=== PATIENT | male | born 1960 | race Caucasian/White ===

== ENCOUNTER 2021-10-30 17:47 | Inpatient (IN) | payer OTHER ==
[~2021-10-30] VITALS: Ht 170.2 cm; Wt 74.6 kg
[2021-10-30] MEDS ORDERED: FINA5 PO (18:06)
[2021-10-30] MEDS ORDERED: FOLI1 PO (18:06)
[2021-10-30] MEDS ORDERED: OMEP20ER PO (18:07)
[2021-10-30] MEDS ORDERED: Prinivil10 MG PO (18:07)
[2021-10-30 18:23] LABS: BASOPHILS ABSOLUTE AUTO 0.04 K/mm3 (0.00-0.23); BASOPHILS PERCENT AUTO 0 % (0-2); EOSINOPHILS ABSOLUTE AUTO 0.07 K/mm3 (0.00-0.68); EOSINOPHILS PERCENT AUTO 1 % (0-6); Hematocrit 42.2 % (37.0-53.0); Hemoglobin 14.4 g/dL (13.5-17.5); IMMATURE GRAN ABSOLUTE AUTO 0.02 K/mm3 (0.00-0.10); IMMATURE GRAN PERCENT AUTO 0 % (0-1); LYMPHOCYTES ABSOLUTE AUTO 2.21 K/mm3 (0.84-5.20); LYMPHOCYTES PERCENT AUTO 23 % (21-46); MONOCYTES ABSOLUTE AUTO 0.63 K/mm3 (0.16-1.47); MONOCYTES PERCENT AUTO 7 % (4-13); Mean Corpuscular HGB 30.2 pg (26.0-34.0); Mean Corpuscular HGB Conc 34.1 g/dL (31.5-36.5); Mean Corpuscular Volume 89 fL (80-100); Mean Platelet Volume 10.6 fL (9.1-12.4); NEUTROPHILS ABSOLUTE AUTO 6.62 K/mm3 (1.96-9.15); NEUTROPHILS PERCENT AUTO 69 % (41-73); Platelet Count 280 K/mm3 (150-400); RDW Coefficient Variation 12.6 % (11.7-14.2); RDW Standard Deviation 41.1 fL (35.1-46.3); Red Blood Cell Count 4.77 M/mm3 (4.30-5.90); White Blood Cell Count 9.59 K/mm3 (4.00-11.30)
[2021-10-30 18:40] LABS: Bun/Creatinine Ratio 14.6 (12.0-20.0); Calcium, Blood 8.9 mg/dL (8.5-10.1); Creatinine, Blood 0.68 mg/dL (0.60-1.20)
[2021-10-30 23:41] LABS: Influenza A, PCR NEGATIVE (NEGATIVE); Influenza B, PCR NEGATIVE (NEGATIVE); Resp Syncytial Virus, PCR NEGATIVE (NEGATIVE); SARS-Cov-2 (COVID-19) PCR, MMC NEGATIVE (NEGATIVE)
[2021-10-31 01:28] LABS: Source, Urine Foley catheter
[2021-10-31 01:31] LABS: Bilirubin, Urine Neg (Neg); Blood, Urine Neg (Neg); Glucose Qualitative, Urine Neg (Neg); Ketones, Urine Neg (Neg); Leukocyte Esterase, Urine 1+ (Neg); Nitrite, Urine Neg (Neg); Protein, Urine Neg (Neg); Specific Gravity, Urine 1.005 (1.003-1.022); Urobilinogen, Urine NORM (Normal)
[2021-10-31 01:37] LABS: Appearance, Urine Clear (Clear); Bacteria Not Seen /hpf; Color, Urine Pale Yellow (P-Yellow); Red Blood Cells, Urine Not Seen /hpf (0-2); Squamous Epithelial Cells Not Seen /hpf (Few); White Blood Cells, Urine 0-2 /hpf (0-5)
[2021-10-31 02:14] LABS: BASOPHILS ABSOLUTE AUTO 0.04 K/mm3 (0.00-0.23); BASOPHILS PERCENT AUTO 0 % (0-2); EOSINOPHILS ABSOLUTE AUTO 0.01 K/mm3 (0.00-0.68); EOSINOPHILS PERCENT AUTO 0 % (0-6); Hematocrit 40.1 % (37.0-53.0); Hemoglobin 13.5 g/dL (13.5-17.5); IMMATURE GRAN ABSOLUTE AUTO 0.04 K/mm3 (0.00-0.10); IMMATURE GRAN PERCENT AUTO 0 % (0-1); LYMPHOCYTES ABSOLUTE AUTO 1.89 K/mm3 (0.84-5.20); LYMPHOCYTES PERCENT AUTO 17 % (21-46); MONOCYTES ABSOLUTE AUTO 0.76 K/mm3 (0.16-1.47); MONOCYTES PERCENT AUTO 7 % (4-13); Mean Corpuscular HGB 30.3 pg (26.0-34.0); Mean Corpuscular HGB Conc 33.7 g/dL (31.5-36.5); Mean Corpuscular Volume 90 fL (80-100); Mean Platelet Volume 10.7 fL (9.1-12.4); NEUTROPHILS ABSOLUTE AUTO 8.71 K/mm3 (1.96-9.15); NEUTROPHILS PERCENT AUTO 76 % (41-73); Platelet Count 267 K/mm3 (150-400); RDW Coefficient Variation 12.7 % (11.7-14.2); RDW Standard Deviation 41.5 fL (35.1-46.3); Red Blood Cell Count 4.45 M/mm3 (4.30-5.90); White Blood Cell Count 11.45 K/mm3 (4.00-11.30)
[2021-10-31 02:34] LABS: Albumin, Blood 3.1 g/dL (3.4-5.0); Albumin/Globulin Ratio 0.9 (0.8-1.8); Bilirubin, Total 1.6 mg/dL (0.1-1.0); Calcium, Blood 8.6 mg/dL (8.5-10.1); Creatinine, Blood 0.75 mg/dL (0.60-1.20); Globulin, Blood 3.5 g/dL (2.2-4.0); Potassium, Blood 3.1 mmol/L (3.5-5.5); Total Protein, Blood 6.6 g/dL (6.4-8.2)
--- NOTE | 2021-10-31 02:51 | NUR ---
ASSUMPTION OF CARE PT ARRIVED TO ICU FROM ER VIA GURNEY. MOVED TO ICU BED VIA SLIDER SHEET. PT USES WHEELCHAIR/ CANE AT BASELINE HE IS A PARAPALEGIC. PT DOES HAVE GROSS MOVEMENT IN LE BUT UNABLE TO WALK. PT ALERT AND ORIENTED, QUITE PLEASANT AND COOPERATIVE WITH CARE. DENIES CP OR SOB AT THIS TIME. ON 2LPM O2 VIA NC c SATS >90%. PT SELF CATHS AT HOME DUE TO BASELINE URINARY RETENTION. PT WAS MEDICATED WITH LASIX PRIOR TO ARRIVAL TO ICU, TEMP PROBE PRADO CATH ESTABLISHED. HTN IMPROVING AFTER LOPRESSOR GIVEN IN ER. PT ABLE TO TURN SELF IN BED, JUST NEEDS HELP TUCKING PILLOWS.
--- NOTE | 2021-10-31 06:50 | NUR ---
SHIFT ASSESSMENT NO ACUTE CHANGES SINCE PRIOR NOTE. PT REMAINS ALERT AND ORIENTED. TURNING SELF IN BED. DENIES CP OR SOB. PT STATES HE FEELS MUCH BETTER THAN HE DID DURING ADMIT. PT ABLE TO SLEEP FOR 3-4 HOURS. REPORT TO ONCOMING NURSE.
--- NOTE | 2021-10-31 08:56 | NUR ---
AM NOTE... ASSUMED CARE OF PT AT 0700, THE PT IS A&Ox4 THE PT WAS ON 4L NC WITH O2 SATS >95% L/S CLEAR T/O DIM IN THE BASES THIS WAS TITRATED DOWN TO 2L NC WITH O2 SATS STILL >95%. THE PT IS IN SINUS TACH IN THE LOW 100'S, NO EDEMA IS NOTED ON ASSESSMENT. THE PT DENIES ANY CHEST PAIN/PRESSURE N/V OR INCREASED SOB, THE PT DOES APPEAR TO BECOME DYSPNEIC WITH MOVING HIMSELF IN THE BED BUT RECOVERS QUICKLY, HIS O2 SATS DID NOT DROP WITH THIS. THE PT'S PRADO IS PATENT AND DRAINING TO GRAVITY. WILL CONTINUE TO MONITOR.
--- NOTE | 2021-10-31 09:58 | NUR ---
PT UPDATE... REPORT GIVEN TO [facility] MEDICAL FLOOR RN. ALL OF PT'S BELONGINGS PACKED AND SENT WITH THE PT. THE PT'S VS STABLE AT THE TIME OF TRANSFER.
--- NOTE | 2021-10-31 10:59 | NUR ---
MR RIOS TRANSFERED TO MEDICAL FLOOR AROUND 1020 THIS AM. A&OX4. HE SAID HIS BREATHING FEELS A LOT BETTER TODAY, ON 2L NC AT THIS TIME. DENIES ANY PAIN OR DISCOMFORT. PRADO CATHETER IN PLACE. SKIN INTACT. BED LOW, CALL LIGHT IN REACH
--- NOTE | 2021-10-31 16:51 | NUR ---
SHIFT SUMMARY. MR RIOS IS A&OX4. NO SOB AT REST AND EXERTION. OXYGEN WEANED TO 1L N/C WITH O2 SATS IN THE HIGH 90S. PT DENIES PAIN. UP TO BATHROOM, +BM TODAY, ABLE TO STAND AND PIVOT WITH 1 PERSON ASSIST. HE HAS HIS OWN CANES AND WHEELCHAIR WITH HIM AND HAD STRONG UPPER BODY STRENGTH. PRADO CATHETER IN PLACE. ON TELEMETRY SR/ST. BED LOW, CALL LIGHT IN REACH.
--- NOTE | 2021-11-01 00:15 | NUR ---
PT REQUESTED INDWELLING PRADO REMOVED. DR.ABRIO BRAMBILA AND NEW ORDERS RECIEVED TO STRAIGHT CATH PRN PER PT'S HOME ROUTINE FOR NEUROGENIC BLADDER. EVE LEYVA'Patrick AND HE IS AWARE TO CALL IF ST.CATH FEELS NEEDED.
[2021-11-01 04:39] LABS: Hematocrit 38.3 % (37.0-53.0); Hemoglobin 12.7 g/dL (13.5-17.5); Mean Corpuscular HGB 30.3 pg (26.0-34.0); Mean Corpuscular HGB Conc 33.2 g/dL (31.5-36.5); Mean Corpuscular Volume 91 fL (80-100); Mean Platelet Volume 10.9 fL (9.1-12.4); Platelet Count 265 K/mm3 (150-400); RDW Coefficient Variation 12.7 % (11.7-14.2); RDW Standard Deviation 42.4 fL (35.1-46.3); Red Blood Cell Count 4.19 M/mm3 (4.30-5.90); White Blood Cell Count 9.32 K/mm3 (4.00-11.30)
--- NOTE | 2021-11-01 04:44 | NUR ---
SUMMARY: PT A/OX4, CALLS APPROPRIATELY TO SPECIFY NEEDS AND IS PLEASANT AND COOPERATIVE W/CARE. HE'S PARAPLEGIC AND W/C BOUND AT BASELINE BUT IS ABLE TO STAND PIVOT T/F W/CANE, SBA PROVIDED FOR SAFETY AND PT AWARE OF LIMITATIONS. PRADO DC'D THIS SHIFT PER REQUEST AND PT TO RESUME ST.CATH PRN FOR NEUROGENIC BLADDER PER HOME SCHEDULE. HE REMAINS ON 1L O2 W/SPO2 WNL AND NO S/S SOB OBSERVED THIS SHIFT. PT CONT'S STACH W/PVC'S AT 100'S BPM. VSS/AFEBRILE, NO ACUTE CHANGES. PT NPO EXCEPT WATER FOR CORONARY RISK PANEL, RESULTS PENDIND. WCTM AND REPORT TO DAY RN.
[2021-11-01 05:14] LABS: Alanine Aminotransfer (ALT/SGP 19 U/L (12-78); Albumin, Blood 2.8 g/dL (3.4-5.0); Albumin/Globulin Ratio 0.9 (0.8-1.8); Alk Phos 64 U/L (50-136); Anion Gap 4 mmol/L (6-16); Aspartate Aminotrans (AST/SGOT 18 U/L (12-37); Bilirubin, Total 0.8 mg/dL (0.1-1.0); Blood Urea Nitrogen 13 mg/dL (8-24); Bun/Creatinine Ratio 14.7 (12.0-20.0); CHOL/HDL RATIO 3.5; CO2, Blood 30 mmol/L (21-32); Calcium, Blood 8.7 mg/dL (8.5-10.1); Chloride, Blood 106 mmol/L (98-108); Cholesterol 152 mg/dL (50-200); Creatinine, Blood 0.89 mg/dL (0.60-1.20); Globulin, Blood 3.1 g/dL (2.2-4.0); Glomerular Filtration Rate 96 (60-); Glucose, Blood 100 mg/dL (70-99); HDL Cholesterol 44 mg/dL (>39); LDL/HDL RATIO 1.9; Low Density Lipoprotein Chol 85 mg/dL (0-110); Magnesium, Blood 2.3 mg/dL (1.6-2.4); Potassium, Blood 3.9 mmol/L (3.5-5.5); Sodium, Blood 140 mmol/L (136-145); Total Protein, Blood 5.9 g/dL (6.4-8.2); Triglycerides 116 mg/dL (30-160); Very Low Density Lipoprot Chol 23 mg/dL (6-32)
--- NOTE | 2021-11-01 17:59 | NUR ---
SHIFT SUMMARY PT AxOx4. PLEASANT AND COOPERATIVE WITH CARE. PT PARAPLEGIC WITH ABILITY TO TRANSFER WITH CANE AND WC ASSISTANCE. PT SELF CATH'S AT HOME PRN D/T NEUROGENIC BLADDER. PER PATIENT REQUEST, RN ASSISTED WITH STRAIGHT CATH x4 THIS SHIFT. NEW 20G IV PLACED IN RFA. PT DENIES DYSPNEA OR PAIN THIS SHIFT. PT REPORTED ABDOMINAL PRESSURE/DISCOMFORT x1. PT STATED THIS RESOLVED AFTER BM AND VOID VIA STRAIGHT CATH. PT DECLINED LACTULOSE AND STOOL SOFTNERS THIS SHIFT. PT BP WAS HYPOTENSIVE AT AFTERNOON VITALS. COREG HELD. PT CURRENTLY RESTING IN BED EATING DINNER. PT DENIES ANY NEEDS AT THIS TIME. CALL LIGHT IN REACH.
--- NOTE | 2021-11-02 04:45 | NUR ---
SUMMARY: PT A/OX4, CALLS APPROPRIATELY TO SPECIFY NEEDS AND IS PLEASANT AND COOPERATIVE W/CARE. HE'S PARAPLEGIC BUT HAS ABILITY TO WT.BEAR AND T/F W/SBA AND CANE TO W/C. PT SELF CATHS AT HOME FOR NEUROGENIC BLADDER AND REQUIRED RN ASSIST TO ST.CATH X2 THIS SHIFT. HE BECOMES SLIGHTLY SOB W/EXERTION AND REMAINS ON 1L O2 VIA NC FOR SPO2 WNL. PT IS NSR ON TELEMETRY W/HR 90'S BPM. HE REFUSED COLACE D/T HAVING "BM'S W/O ISSUE" AND DENIED ALL COMPLAINTS OTHER THAN ABDO DISCOMFORT WHEN FEELING NEED TO VOID. NO ACUTE CHANGES, VSS AND AFEBRILE. WCTM AND REPORT TO DAY RN.
[2021-11-02 05:17] LABS: Hematocrit 40.7 % (37.0-53.0); Hemoglobin 13.2 g/dL (13.5-17.5); Mean Corpuscular HGB 29.9 pg (26.0-34.0); Mean Corpuscular HGB Conc 32.4 g/dL (31.5-36.5); Mean Corpuscular Volume 92 fL (80-100); Mean Platelet Volume 11.4 fL (9.1-12.4); Platelet Count 281 K/mm3 (150-400); RDW Coefficient Variation 12.7 % (11.7-14.2); RDW Standard Deviation 43.3 fL (35.1-46.3); Red Blood Cell Count 4.41 M/mm3 (4.30-5.90); White Blood Cell Count 10.96 K/mm3 (4.00-11.30)
[2021-11-02 05:51] LABS: Albumin/Globulin Ratio 0.8 (0.8-1.8); Bilirubin, Total 0.9 mg/dL (0.1-1.0); Bun/Creatinine Ratio 17.3 (12.0-20.0); Calcium, Blood 9.1 mg/dL (8.5-10.1); Creatinine, Blood 0.87 mg/dL (0.60-1.20); Globulin, Blood 3.6 g/dL (2.2-4.0); Total Protein, Blood 6.6 g/dL (6.4-8.2)
[2021-11-02] MEDS ORDERED: ASPI81CH PO (14:00)
[2021-11-02] MEDS ORDERED: Carvedilol12.5 MG PO (14:02)
[2021-11-02] MEDS ORDERED: FURO40 (14:02)
[2021-11-02] MEDS ORDERED: SPIR25 PO (14:03)
--- NOTE | 2021-11-02 15:37 | NUR ---
REVEIWED ALL NOTES AND ASSESSMENTS BY LUCINA ESTEBAN AND MONSE.
== END 2021-11-02 15:51 | DRG 189 ==
LOC: ER 17:47 → MEDS 10-31 00:27 → ICUW 10-31 00:27 → ICUE 10-31 00:39 → MEDS 10-31 10:23
PROVIDERS: Emergency Medicine; Internal Medicine; Student in an Organized Health Care Education/Training Program; ADMIT Internal Medicine
DX: J96.00 Acute respiratory failure, unspecified whether with hypoxia or hypercapnia (principal); J91.8 Pleural effusion in other conditions classified elsewhere; G82.22 Paraplegia, incomplete; I11.0 Hypertensive heart disease with heart failure; Z20.822 Contact with and (suspected) exposure to COVID-19; M19.90 Unspecified osteoarthritis, unspecified site; I25.10 Atherosclerotic heart disease of native coronary artery without angina pectoris; E78.5 Hyperlipidemia, unspecified; I50.9 Heart failure, unspecified; E87.6 Hypokalemia; R07.89 Other chest pain; N31.9 Neuromuscular dysfunction of bladder, unspecified; I25.2 Old myocardial infarction; Z87.891 Personal history of nicotine dependence; Z98.890 Other specified postprocedural states; Z88.1 Allergy status to other antibiotic agents; Z88.8 Allergy status to other drugs, medicaments and biological substances; Z79.899 Other long term (current) drug therapy
CPT/HCPCS: 0241U; 36415; 51701; 51702; 71045; 71260; 74177; 80048; 80053; 80061; 81001; 83605; 83735; 83880; 84132; 84484; 85025; 85027; 87070; 87077; 87086; 87186; 87205; 93005; 93010; 93306; 96374; 96375; 99285-25; A9270; J0696; J1650; J1940; J2270; J7030; Q9967

== ENCOUNTER 2021-12-08 07:44 | Day surgery (SDC) | payer OTHER ==
[~2021-12-08] VITALS: Ht 170.2 cm; Wt 60.2 kg
[~2021-12-08 07:44] MED LIST: ASPI81CH PO; Carvedilol12.5 MG PO; FINA5 PO; FOLI1 PO; FURO40; OMEP20ER PO; Prinivil10 MG PO; SPIR25 PO
--- NOTE | 2021-12-08 08:32 | NUR ---
12/08/21 0832 CAROLYN GIRON @ [phone], NORA @ [phone]
== END 2021-12-08 10:00 | disposition home or self-care (01) ==
LOC: ORSCSDS 07:44
PROVIDERS: Ophthalmology
PROC: 08RJ3JZ Replacement of Right Lens with Synthetic Substitute, Percutaneous Approach (ICD-10-PCS; principal; 2021-12-08 09:00)
DX: H25.13 Age-related nuclear cataract, bilateral (principal); I50.9 Heart failure, unspecified; I10 Essential (primary) hypertension; I25.2 Old myocardial infarction; I25.10 Atherosclerotic heart disease of native coronary artery without angina pectoris; Z79.82 Long term (current) use of aspirin; Z79.899 Other long term (current) drug therapy
CPT/HCPCS: J2001; J2250; J3010; J3301; J7040; V2632

== ENCOUNTER 2022-06-17 08:54 | Day surgery (SDC) | payer OTHER ==
[~2022-06-17] VITALS: Ht 172.7 cm; Wt 78.0 kg
[~2022-06-17 08:54] MED LIST changes: -FURO40; +FURO40 PO; +LOSA50 PO; +MOXIOPS UD; +XARELTO20 MG PO
--- NOTE | 2022-06-17 12:31 | NUR ---
PT SITTING BED EATING LUNCH. RIGHT RADIAL TR BAND SITE SOFT NON-TENDER WITH NO HEMATOMA, NO PULSITILE BLEEDING AND WRIST BOARD IN PLACE. PT DENIES CHEST PAIN. CALL LIGHT IN REACH.
--- NOTE | 2022-06-17 13:05 | NUR ---
FULL REPORT PROVIDED Irena VARELA TO ASSUME CARE OF PT IN RECOVERY ROOM.
--- NOTE | 2022-06-17 14:19 | NUR ---
10CC AIR REMOVED FROM R WRIST TR BAND. -BLEEDING OR SWELLING. R WRIST TR BAND REMOVED. PUNCTURE AREA CLEANED /C NS. R WRIST SPLINT REAPPLIED. PT VERBALIZED UNDERSTANDING OF WRITTEN AND VERBAL D/C INST. PT TAKEN OUT OF THE HRT CENTER VIA W/C.
== END 2022-06-17 14:46 | disposition home or self-care (01) ==
LOC: MHTC 08:54
DX: I25.5 Ischemic cardiomyopathy (principal); I11.0 Hypertensive heart disease with heart failure; I50.9 Heart failure, unspecified; I21.9 Acute myocardial infarction, unspecified; I48.0 Paroxysmal atrial fibrillation; I25.10 Atherosclerotic heart disease of native coronary artery without angina pectoris
CPT/HCPCS: 76937; 93458; 99152; 99153; C1769; C1887; C1894; J1644; J2250; J3010; J7030; J7050; Q9967

== ENCOUNTER 2024-06-07 09:28 | Day surgery (SDC) | payer OTHER ==
[~2024-06-07] VITALS: Ht 175.3 cm; Wt 75.0 kg
[~2024-06-07 09:28] MED LIST changes: +ARTIFICIAL TEARS BOTHEYES; +Balanced Salt Epinephrine Irrigation Solution 500 mL IR SCH; +ELIQUIS5 M2 PO; +Lidocaine HCl/Pf 1% 5 ML VIAL XX SCH; +MULTI-VITAMIN1 EAC2 PO; +Moxifloxacin HCL 0.5 MG/0.1 ML 0.4MLSYR LEFTEYE SCH; +NITROGLYCERIN; +PHENYLEPHRINE\\TROPICAMIDE\\TETRACAINE OPHTHALMIC DILATING SOLN LEFTEYE PRN; +Povidone-Iodine 450 DROP/30 ML Solution LEFTEYE SCH; +Povidone-Iodine 450 DROP/30 ML Solution ONE; +Tetracaine HCl/Pf 0.5% Opth Soln 4 ml ONE; +Triamcinolone Inj Susp 40 MG / ML 1ML Vial INJ SCH; +Triamcinolone Inj Susp 40 MG / ML 1ML Vial ONE; +VITAMIN D5000 UNIT PO
[2024-06-07] MEDS ORDERED: Diazepam 2 MG Tab ONE ×2 (09:46→10:30)
[2024-06-07] MEDS ORDERED: Diazepam 5 MG Tab ONE (09:46)
[2024-06-07] MEDS ORDERED: FentaNYL Citrate 50 MCG/ML 2 ML Injection ONE (10:58)
[2024-06-07] MEDS ORDERED: Midazolam HCl 1MG / ML 2ML Vial ONE (10:58)
[2024-06-07 11:40] VITALS: BP 117/79
== END 2024-06-07 11:58 | disposition home or self-care (01) ==
LOC: ORSCSDS 09:28
PROVIDERS: Ophthalmology
PROC: 08RK3JZ Replacement of Left Lens with Synthetic Substitute, Percutaneous Approach (ICD-10-PCS; principal; 2024-06-07 11:00)
DX: H25.812 Combined forms of age-related cataract, left eye (principal); Z96.1 Presence of intraocular lens; I10 Essential (primary) hypertension; I50.9 Heart failure, unspecified; I25.2 Old myocardial infarction; Z79.01 Long term (current) use of anticoagulants; Z79.82 Long term (current) use of aspirin; Z79.899 Other long term (current) drug therapy; Z87.891 Personal history of nicotine dependence
CPT/HCPCS: A9270; J2250; J3010; J3301; V2632

== ENCOUNTER 2024-06-29 07:07 | Day surgery (SDC) | payer OTHER ==
[~2024-06-29] VITALS: Ht 164 cm; Wt 71.2 kg
[~2024-06-29 07:07] MED LIST changes: +ACET500 PO; -Balanced Salt Epinephrine Irrigation Solution 500 mL IR SCH; +FERSU300 PO; +Lactated Ringer's 1,000 ML IV SCH; -Lidocaine HCl/Pf 1% 5 ML VIAL XX SCH; -Moxifloxacin HCL 0.5 MG/0.1 ML 0.4MLSYR LEFTEYE SCH; -NITROGLYCERIN; +Nitroglycerin1 EAC3 TOP; -PHENYLEPHRINE\\TROPICAMIDE\\TETRACAINE OPHTHALMIC DILATING SOLN LEFTEYE PRN; -Povidone-Iodine 450 DROP/30 ML Solution LEFTEYE SCH; -Povidone-Iodine 450 DROP/30 ML Solution ONE; -Tetracaine HCl/Pf 0.5% Opth Soln 4 ml ONE; -Triamcinolone Inj Susp 40 MG / ML 1ML Vial INJ SCH; -Triamcinolone Inj Susp 40 MG / ML 1ML Vial ONE; +Vitamin B Comple1 EA PO
--- NOTE | 2024-06-29 07:54 | NUR ---
PT INTO SDS VIA W/C. Patient confirms NPO status and agrees with scheduled surgery. Pre-Op teaching done. Pt verbalizes understanding. History, Chart, Medications and Allergies reviewed before start of procedure.Patient States Post-Procedure ride home has been arranged.
[2024-06-29 07:55] VITALS: BP 107/87
[2024-06-29] MEDS ORDERED: propofoL 60 ML IV ONE (08:35)
--- NOTE | 2024-06-29 09:04 | NUR ---
06/29/24 [address] DOTSON; SEE ANESTHESIA RECORDS.
[2024-06-29] MEDS ORDERED: propofoL 20 ML IV ONE ×2 (09:17→09:34)
[2024-06-29] MEDS ORDERED: NS 500 ML IV ONE (09:32)
[2024-06-29] MEDS ORDERED: NS 500 ML IV PRN (09:35)
[2024-06-29] MEDS ORDERED: NS 500 ML IV SCH (09:40)
[2024-06-29 10:00] VITALS: BP 133/99
--- NOTE | 2024-06-29 10:01 | NUR ---
REPORT RECEIVED FROM MACHO ESTEBAN. VSS. PT ON RA. PT ABLE TO REPOSITION SELF IN BED. PT REQUESTING PO FLUIDS AND TOLERATING THEM WELL. PT DENIES PAIN, NAUSEA OR OTHER DISCOMFORTS. CAREGIVER AT BEDSIDE.
[2024-06-29 10:15] VITALS: BP 133/98
--- NOTE | 2024-06-29 10:27 | NUR ---
PT UP TO DRESS WITH HELP FROM CAREGIVER, MOBILITY IS CONSISTENT WITH PT BASELINE. PT HAS NO COMPLAINTS AND VERBALIZES READINESS TO GO HOME. Discharge instructions reviewed with patient AND HIS CAREGIVER. Patient AND CAREGIVER verbalize understanding. Copy given to patient to take home. Patient States Post-Procedure ride home has been arranged. Discharged via wheelchair to private car for ride home. PT BELONGINGS RETURNED TO PT.
== END 2024-06-29 10:26 | disposition home or self-care (01) ==
LOC: ORSCMMR 07:07 → ORD 08:30 → ORSCMMR 10:26
PROVIDERS: Surgery
PROC: 0DBM8ZX Excision of Descending Colon, Via Natural or Artificial Opening Endoscopic, Diagnostic (ICD-10-PCS; principal; 2024-06-29 08:30)
PROC: 0DBL8ZX Excision of Transverse Colon, Via Natural or Artificial Opening Endoscopic, Diagnostic (ICD-10-PCS; principal; 2024-06-29 08:30)
PROC: 0DBN8ZX Excision of Sigmoid Colon, Via Natural or Artificial Opening Endoscopic, Diagnostic (ICD-10-PCS; principal; 2024-06-29 08:30)
PROC: 0DBH8ZX Excision of Cecum, Via Natural or Artificial Opening Endoscopic, Diagnostic (ICD-10-PCS; principal; 2024-06-29 08:30)
PROC: 0DBK8ZX Excision of Ascending Colon, Via Natural or Artificial Opening Endoscopic, Diagnostic (ICD-10-PCS; principal; 2024-06-29 08:30)
DX: Z12.11 Encounter for screening for malignant neoplasm of colon (principal); Z86.0100 Personal history of colon polyps, unspecified; D12.4 Benign neoplasm of descending colon; D12.0 Benign neoplasm of cecum; D12.2 Benign neoplasm of ascending colon; D12.3 Benign neoplasm of transverse colon; D12.5 Benign neoplasm of sigmoid colon; M48.00 Spinal stenosis, site unspecified; I48.0 Paroxysmal atrial fibrillation; I25.2 Old myocardial infarction; I10 Essential (primary) hypertension; K21.9 Gastro-esophageal reflux disease without esophagitis; E78.5 Hyperlipidemia, unspecified; Z87.891 Personal history of nicotine dependence; Z79.82 Long term (current) use of aspirin; Z79.01 Long term (current) use of anticoagulants; Z79.899 Other long term (current) drug therapy
CPT/HCPCS: 88305; 93005; 93010; J2704; J7040; J7120